=== PATIENT | female | born 1940 | race Caucasian/White ===

== ENCOUNTER 2017-06-22 10:09 | Day surgery (SDC) | payer OTHER ==
[~2017-06-22] VITALS: Ht 165.1 cm; Wt 79.0 kg
[~2017-06-22 10:09] MED LIST: ACTOS45 MG PO; AMLODIPINE BESYL5 MG PO; AVAPRO150 MG PO; BASAGLAR K100 UNIT/1 SC; BENTYL20 MG PO; BYSTOLIC10 MG PO; BYSTOLIC5 MG PO; Bystolic PO; CARDIZEM CD240 MG PO; CEFTIN250 MG PO; CIPRO PO; Cardizem CD,Cartia X PO; DICYCLOMINE HCL20 MG PO; DILTIAZEM 24HR240 MG PO; DITROPAN XL5 MG PO; DITROPAN5 MG PO; FIBER LAXATIVE625 M1 PO; FLEXERIL5 MG PO; GLUCOPHAGE1000 MG PO; HUMALOG JU100 UNIT/1 SC; HUMALOG MI100 UNIT/6 SC; HYDROCHLOROTHIA25 MG PO; IMMODIUM AD PO; INDERIDE 40/1 TABLET PO; JANUVIA25 M1 PO; LEVOTHROID,S0.075 MG PO; LIPITOR40 MG PO; LISINOPRIL20 MG PO; Levothroid,Synthroid PO; METOPROLOL SUCC50 MG PO; NAPROXEN500 MG PO; NORCO 5/3251 TABLET PO; OMEPRAZOLE20 M2 PO; OMEPRAZOLE40 M1 PO; PREDNISONE10 MG PO; PREVACID15 MG PO; PROCTOZONE-HC30 GM PR; PROTONIX40 MG PO; RECTASMOOTHE30 GM TP; RED YEAST RICE600 MG PO; SYNTHROID75 MCG PO; TRAMADOL HCL50 MG PO; TYLENOL REGULA325 MG PO; UNABLEOBTAIN; VALACYCLOVIR500 MG PO; VALTREX50 MG/ML PO; VANOS60 GM TP; VITAMIN B-1250 MC3 PO; VITAMIN D32000 UNI1 PO; ZEGERID40 MG PO; ZOFRAN4 MG PO; ZYLOPRIM50 MG PO
[2017-06-22 11:06] VITALS: BP 173/78
[2017-06-22 15:05] VITALS: BP 181/73
[2017-06-22 15:40] VITALS: BP 139/63
== END 2017-06-22 15:45 | disposition home or self-care (01) ==
LOC: SDC 10:09
PROVIDERS: Obstetrics & Gynecology Gynecologic Oncology
PROC: 0UJH7ZZ Inspection of Vagina and Cul-de-sac, Via Natural or Artificial Opening (ICD-10-PCS; principal; 2017-06-22)
PROC: 0UB Female Reproductive System, Excision (ICD-10-PCS; principal; 2017-06-22)
DX: C52 Malignant neoplasm of vagina (principal); Z85.048 Personal history of other malignant neoplasm of rectum, rectosigmoid junction, and anus; I10 Essential (primary) hypertension; E11.9 Type 2 diabetes mellitus without complications; E03.9 Hypothyroidism, unspecified; Z79.4 Long term (current) use of insulin; Z88.2 Allergy status to sulfonamides; Z92.3 Personal history of irradiation
CPT/HCPCS: 82948; 88305; J0330; J0690; J1885; J3010; S0020